=== PATIENT | female | born 2000 ===

== ENCOUNTER 2023-07-11 15:25 | Emergency (ER) | payer OTHER ==
[2023-07-11 15:41] VITALS: RESP 18
[2023-07-11] MEDS ORDERED: SODIUM CHLORIDE 0.9% 1,000 ML IV STA (15:52)
--- NOTE | 2023-07-11 16:10 | ED ---
ENT HPI - General Chief complaint: ENT Stated complaint: Dyspnea Time Seen by Provider: 07/11/23 15:29 Source: patient, family, EMS, RN notes reviewed Mode of arrival: EMS Limitations: language barrier - History of Present Illness Initial comments: This is a 22-year-old female who presents to the emergency department for throat tightness. States that she had a sudden episode of throat tightness lasting approximately 20 minutes, prompting her to call EMS. Symptoms have largely resolved at this point. Her friend is unsure if this may been related to anxiety. Patient is unsure if she is experiencing anxiety, but states that it is possible. Patient speaks very little [place] and requests that her friend and her translate for her and declines an official translater. Denies any chest pain or shortness of breath. - Related Data Allergies Allergy/AdvReac Type Severity Reaction Status Date / Time No Known Allergies Allergy Verified 07/11/23 15:32 Review of Systems ROS Statement: Those systems with pertinent positive or pertinent negative responses have been documented in the HPI. ROS Other: All systems not noted in ROS Statement are negative. General Exam Limitations: language barrier General appearance: alert, in no apparent distress Head exam: Present: atraumatic, normocephalic, normal inspection Neck exam: Present: normal inspection. Absent: tenderness, meningismus, lymphadenopathy Respiratory exam: Present: normal lung sounds bilaterally. Absent: respiratory distress, wheezes, rales, rhonchi, stridor Cardiovascular Exam: Present: regular rate, normal rhythm, normal heart sounds. Absent: systolic murmur, diastolic murmur, rubs, gallop, clicks Neurological exam: Present: alert, oriented X3, CN II-XII intact Psychiatric exam: Present: normal affect, normal mood Skin exam: Present: warm, dry, intact, normal color. Absent: rash Course Vital Signs 07/11/23 07/11/23 15:29 18:30 Temperature 97.7 F 97.8 F Pulse Rate 75 84 Respiratory 18 18 Rate Blood Pressure 117/67 128/81 O2 Sat by Pulse 99 99 Oximetry Medical Decision Making - Medical Decision Making This is a 22-year-old female who presents to the emergency department for throat tightness. Was pt. sent in by a medical professional or institution? @ -No Did you speak to anyone other than the patient for history? @ -Her friend and provided translation. Did you review nursing and triage notes? @ -Yes, and I agree, it is accurate with regards to the patient's symptoms. Were old charts reviewed? @ -No Differential Diagnosis? @ -Differential Throat Tightness: Allergic reaction, GERD, Viral URI, strep throat, this is not meant to be an all-inclusive list. EKG interpreted by me (3pts min.)? @ -Not obtained X-rays interpreted by me (1pt min.)? @ -X-ray of the chest and soft tissue neck obtained. My interpretation identifies an opacity in the left paratracheal region without any other acute process. CT interpreted by me (1pt min.)? @ -Computed tomography scan of the chest obtained. My interpretation identifies no localized consolidations or infiltrates. U/S interpreted by me (1pt. min.)? @ -Not obtained What testing was considered but not performed? (CT, X-rays, U/S, labs)? Why? @ -None What meds were considered but not given? Why? @ -None Did you discuss the management of the patient with other professionals? @ -No Did you reconcile home meds? @ -No Was smoking cessation discussed for >3mins.? @ -No Was critical care preformed (if so, how long)? @ -No Were there social determinants of health that impacted care today? How? (Homelessness, low income, unemployed, alcoholism, drug addiction, transportation, low edu. Level, literacy, decrease access to med. care, correction, rehab)? @ -No Was there de-escalation of care discussed even if they declined? (Discuss DNR or withdrawal of care, Hospice)? @ -No What co-morbidities impacted this encounter? (DM, HTN, Smoking, COPD, CAD, Cancer, CVA, Hep., AIDS, mental health diagnosis, sleep apnea, morbid obesity)? @ -None Was patient admitted / discharged? @ -Discharged. When the patient had arrived to the hospital, her symptoms had essentially resolved. She did however request to proceed with further workup. Lab work was obtained and found to be unremarkable. X-ray of the chest and soft tissue neck obtained demonstrating a masslike opacity in the left paratracheal region suggestive of a mediastinal mass or substernal thyroid. A computed tomography scan of the chest was advised for further evaluation. Computed tomography scan of the chest was subsequently obtained demonstrating no acute process. Findings reviewed with the patient and her family. She was given IV fluids as well in the emergency department. At the time of discharge, her symptoms had resolved. Advised that her symptoms may have been related to anxiety, however it is not entirely clear. Advised she follow-up with her primary care provider for reevaluation. Undiagnosed new problem with uncertain prognosis? @ -None Drug Therapy requiring intensive monitoring for toxicity (Heparin, Nitro, Insulin, Cardizem)? @ -None Were any procedures done? @ -None Diagnosis/symptom? @ -Throat tightness Acute, or Chronic, or Acute on Chronic? @ -Acute Uncomplicated (without systemic symptoms) or Complicated (systemic symptoms)? @ -Uncomplicated Side effects of treatment? @ -None Exacerbation, Progression, or Severe Exacerbation] @ -Not applicable Poses a threat to life or bodily function? @ -Unlikely Return precautions reviewed in depth, the patient is instructed to return to the emergency department with any new, worsening, or concerning symptoms. Patient verbalized understanding. This case was discussed in detail with the attending ED physician, Dr. Sauceda. Presentation, findings, and treatment plan discussed in detail as well. - Lab Data Result diagrams: 07/11/23 16:06 07/11/23 16:06 Lab Results 07/11/23 07/11/23 07/11/23 Range/Units 16:06 16:06 16:42 WBC 4.1 (3.8-10.6) k/uL RBC 4.91 (3.80-5.40) m/uL Hgb 13.1 (11.4-16.0) gm/dL Hct 39.1 (34.0-46.0) % MCV 79.6 L (80.0-100.0) fL MCH 26.6 (25.0-35.0) pg MCHC 33.4 (31.0-37.0) g/dL RDW 14.1 (11.5-15.5) % Plt Count 147 L (150-450) k/uL MPV 10.5 Neutrophils % 58 % Lymphocytes % 32 % Monocytes % 6 % Eosinophils % 1 % Basophils % 1 % Neutrophils # 2.4 (1.3-7.7) k/uL Lymphocytes # 1.3 (1.0-4.8) k/uL Monocytes # 0.2 (0-1.0) k/uL Eosinophils # 0.0 (0-0.7) k/uL Basophils # 0.0 (0-0.2) k/uL Sodium 140 (137-145) mmol/L Potassium 3.6 (3.5-5.1) mmol/L Chloride 107 (98-107) mmol/L Carbon Dioxide 23 (22-30) mmol/L Anion Gap 10 mmol/L BUN 13 (7-17) mg/dL Creatinine 0.51 L (0.52-1.04) mg/dL Est GFR (CKD-EPI)AfAm >90 (>60 ml/min/1.73 sqM) Est GFR (CKD-EPI)NonAf >90 (>60 ml/min/1.73 sqM) Glucose 89 (74-99) mg/dL Calcium 9.3 (8.4-10.2) mg/dL Total Bilirubin 0.6 (0.2-1.3) mg/dL AST 27 (14-36) U/L ALT 14 (4-34) U/L Alkaline Phosphatase 55 (38-126) U/L Total Protein 7.2 (6.3-8.2) g/dL Albumin 4.2 (3.5-5.0) g/dL TSH 0.540 (0.465-4.680) mIU/L HCG, Qual 07/11/23 Range/Units 16:42 WBC (3.8-10.6) k/uL RBC (3.80-5.40) m/uL Hgb (11.4-16.0) gm/dL Hct (34.0-46.0) % MCV (80.0-100.0) fL MCH (25.0-35.0) pg MCHC (31.0-37.0) g/dL RDW (11.5-15.5) % Plt Count (150-450) k/uL MPV Neutrophils % % Lymphocytes % % Monocytes % % Eosinophils % % Basophils % % Neutrophils # (1.3-7.7) k/uL Lymphocytes # (1.0-4.8) k/uL Monocytes # (0-1.0) k/uL Eosinophils # (0-0.7) k/uL Basophils # (0-0.2) k/uL Sodium (137-145) mmol/L Potassium (3.5-5.1) mmol/L Chloride (98-107) mmol/L Carbon Dioxide (22-30) mmol/L Anion Gap mmol/L BUN (7-17) mg/dL Creatinine (0.52-1.04) mg/dL Est GFR (CKD-EPI)AfAm (>60 ml/min/1.73 sqM) Est GFR (CKD-EPI)NonAf (>60 ml/min/1.73 sqM) Glucose (74-99) mg/dL Calcium (8.4-10.2) mg/dL Total Bilirubin (0.2-1.3) mg/dL AST (14-36) U/L ALT (4-34) U/L Alkaline Phosphatase (38-126) U/L Total Protein (6.3-8.2) g/dL Albumin (3.5-5.0) g/dL TSH (0.465-4.680) mIU/L HCG, Qual Not Detected - Radiology Data Radiology results: report reviewed, image reviewed Disposition Clinical Impression: Throat tightness Disposition: HOME SELF-CARE Additional Instructions: Return to the emergency department with any new, worsening, or concerning symptoms. Follow up with your primary care provider in 1-2 days. Is patient prescribed a controlled substance at d/c from ED?: No Referrals: None,Stated [Primary Care Provider] - 1-2 days Forms: Area PCPs
--- NOTE | 2023-07-11 16:16 | XR ---
EXAMINATION TYPE: XR chest 2V DATE OF EXAM: 07/11/2023 COMPARISON: None HISTORY: Chest pain and throat tightness TECHNIQUE: Frontal and lateral views of the chest are obtained. FINDINGS: There is a focal masslike opacity in the left paratracheal region which could represent a mediastinal mass possibly substernal thyroid. CT of the chest is recommended for further evaluation. There is no pneumothorax or pleural effusion. Heart and pulmonary vasculature are normal. The osseous structures are intact. IMPRESSION: Masslike opacity in the left paratracheal region as described above. CT of the chest useful for [facility] er evaluation.
--- NOTE | 2023-07-11 16:18 | XR ---
Soft tissues of the neck. HISTORY: Throat tightness. COMPARISON: None TECHNIQUE: Frontal and lateral views of the soft tissues neck were obtained. FINDINGS: Craniovertebral junction relationships and prevertebral soft tissues are normal. The cervical vertebral segments are normal in height and alignment. The airway is widely patent and there is no subglottic narrowing. There is no radiopaque foreign body . There is no retropharyngeal fullness or enlargement of the tonsils. IMPRESSION: No significant abnormality seen.
[2023-07-11] MEDS ORDERED: RX INFO: IV CONTRAST WAS GIVEN 1 EACH MISC MISCELLANE PRN (16:27)
[2023-07-11 16:33] LABS: Basophils % (A) 1 %; Eosinophils % (A) 1 %; HCT 39.1 % (34.0-46.0); HGB 13.1 gm/dL (11.4-16.0); Lymphocytes # (A) 1.3 k/uL (1.0-4.8); Lymphocytes % (A) 32 %; MCH 26.6 pg (25.0-35.0); MCHC 33.4 g/dL (31.0-37.0); MCV 79.6 fL (80.0-100.0); Mean Platelet Volume 10.5; Monocytes # (A) 0.2 k/uL (0-1.0); Monocytes % (A) 6 %; Neutrophils # (A) 2.4 k/uL (1.3-7.7); Neutrophils % (A) 58 %; Platelet Count 147 k/uL (150-450); RBC 4.91 m/uL (3.80-5.40); RDW 14.1 % (11.5-15.5); WBC 4.1 k/uL (3.8-10.6)
[2023-07-11 16:56] LABS: ALT 14 U/L (4-34); AST 27 U/L (14-36); African American GFR (CKD) >90 (>60 ml/min/1.73 sqM); Albumin 4.2 g/dL (3.5-5.0); Alkaline Phosphatase 55 U/L (38-126); Anion Gap 10 mmol/L; Blood Urea Nitrogen 13 mg/dL (7-17); Calcium 9.3 mg/dL (8.4-10.2); Carbon Dioxide 23 mmol/L (22-30); Chloride 107 mmol/L (98-107); Glucose 89 mg/dL (74-99); Non-African American GFR(CKD) >90 (>60 ml/min/1.73 sqM); Potassium 3.6 mmol/L (3.5-5.1); Sodium 140 mmol/L (137-145); Total Bilirubin 0.6 mg/dL (0.2-1.3); Total Protein 7.2 g/dL (6.3-8.2)
--- NOTE | 2023-07-11 17:01 | CT ---
EXAMINATION TYPE: CT chest w con DATE OF EXAM: 07/11/2023 COMPARISON: None HISTORY: abnormal chest xray in PACS. CT DLP: 219.7 mGycm Automated exposure control for dose reduction was used. TECHNIQUE: CT scan of the chest is performed with IV Contrast, patient injected with 100 mL of Isovue 300. MIP Images are created on CT scanner and reviewed. 3D reconstructed images are created on an independent workstation and reviewed. FINDINGS: LUNGS: The lungs are are clear of consolidative/airspace density or abnormal interstitial density. There is no pleural effusion, pleural thickening or pneumothorax. There is no pleural effusion or pneumothorax seen. There is no mediastinal, hilar or axillary adenopathy. There is no left paratracheal mass and there i s no substernal thyroid. Limited scanning the upper abdomen. The osseous structures are intact. IMPRESSION: No significant abnormality seen. There is no abnormality corresponding to the appearance fullness in the left paratracheal region on the chest radiograph of the same date. IMPRESSION: Follow-up recommendations for incidental pulmonary nodules are per [employer] or [employer].
[2023-07-11 18:41] VITALS: BP 128/81; PULSE 84; TEMP 97.8
== END 2023-07-11 18:31 | disposition home or self-care (01) ==
LOC: EC 15:25
DX: R07.0 Pain in throat (principal)
CPT/HCPCS: 36415; 80053; 84443; 85025; 84703; 70360; 71046; 71260; 99285; 96360; 96361; Q9967

== ENCOUNTER 2024-02-09 17:49 | Emergency (ER) | payer OTHER ==
[2024-02-09 20:50] LABS: Appearance,Urine Cloudy (Clear); Bacteria,Urine Many /hpf; Bilirubin,Urine Negative (Negative); Blood,Urine Negative (Negative); Color,Urine Yellow; Glucose,Urine (UA) Negative (Negative); Ketones,Urine Trace (Negative); Leukocyte Esterase,Urine Negative (Negative); Mucus,Urine Many /hpf; Nitrite,Urine Negative (Negative); PH, Urine 5.5 (5.0-8.0); Protein,Urine Negative (Negative); RBC,Urine <1 /hpf (0-5); Specific Gravity,Urine 1.027 (1.001-1.035); Squamous Epithelial Cell,Urine 6 /hpf (0-4); Urobilinogen,Urine <2.0 mg/dL (<2.0); WBC,Urine 1 /hpf (0-5)
--- NOTE | 2024-02-09 21:31 | US ---
EXAMINATION TYPE: Transabdominal DATE OF EXAM: 02/09/2024 9:05 PM COMPARISON: NONE CLINICAL INDICATION: Female, 23 years old with history of abd pain, of unk loc; Patients fri end states there is a little pain but not much. No bleeding. Patient hear for upper respiratory sympt oms. EXAM PERFORMED: Transabdominal (TA) EXAM MEASUREMENTS: GESTATIONAL AGE / DATING Physician Established: Not yet established Dates by LMP: (6 weeks/6 days) EDC: 09/28/2024 Dates by First Scan: No previous this is first scan Dates by Current Scan for: (7 weeks/1 days) EDC: 09/26/2024 MATERNAL ANATOMY Uterus: 8.4 x 5.8 x 6.8 Right Ovary: Obscured by overlying bowel Left Ovary: Obscured by overlying bowel Post CDS / Adnexa: WNL Presence of free fluid: No Presence of corpus luteal cyst: Not seen Presence of subchorionic bleed: There is a small 1.2 x 0.8 x 0.8cm hypoechoic area seen GESTATION / SURVEY CRL: 1.0 (7 weeks/1 days) Yolk Sac (normal less than 6mm): 4mm Heart Rate: 161 bpm Rhythm: Normal IUP: Viable IUP Date of LMP: 12/23/2023 Beta HcG (if available): Not available at this time IMPRESSION: 1. Single live intrauterine gestation with ultrasound age 7 weeks 1 day. 2. Tiny subchorionic hemorrhage .
--- NOTE | 2024-02-09 21:35 | ED ---
General Adult HPI - General Chief complaint: Upper Respiratory Infection Stated complaint: poss flu/back pain/8wks preg Time Seen by Provider: 02/09/24 17:55 Source: patient Mode of arrival: ambulatory Limitations: no limitations - History of Present Illness Initial comments: 23-year-old female who presents emergency department with "flulike symptoms". There is an educational interpreter at bedside. States that the patient has had cough, congestion, ear pain, sore throat for the past 2 days. Denies any fevers. No sick contacts with similar symptoms. Patient is currently 8 weeks . She has yet to establish care. She does do some abdominal cramping. This is the patient's first . She denies any vaginal bleeding or discharge. Denies chest pain or shortness of breath no changes in her bowel habits. Denies dysuria, hematuria or difficulty voiding. She does admit to some midline back pain. No reported trauma. No other alleviating, precipitating modifying factors - Related Data Previous Rx's Medication Instructions Recorded Cephalexin [Keflex] 500 mg PO QID 1 Days #40 cap 02/09/24 Allergies Allergy/AdvReac Type Severity Reaction Status Date / Time No Known Allergies Allergy Verified 02/09/24 17:56 Review of Systems ROS Statement: Those systems with pertinent positive or pertinent negative responses have been documented in the HPI. ROS Other: All systems not noted in ROS Statement are negative. Past Medical History Past Medical History: No Reported History History of Any Multi-Drug Resistant Organisms: None Reported Past Surgical History: No Surgical Hx Reported Past Psychological History: No Psychological Hx Reported Smoking Status: Never smoker Past Alcohol Use History: None Reported Past Drug Use History: None Reported General Exam Limitations: no limitations General appearance: alert, in no apparent distress Head exam: Present: atraumatic, normocephalic, normal inspection Eye exam: Present: normal appearance, PERRL, EOMI. Absent: scleral icterus, conjunctival injection, periorbital swelling ENT exam: Present: normal exam, mucous membranes moist, other (nasal congestion) Neck exam: Present: normal inspection. Absent: tenderness, meningismus, lymphadenopathy Respiratory exam: Present: normal lung sounds bilaterally. Absent: respiratory distress, wheezes, rales, rhonchi, stridor Cardiovascular Exam: Present: regular rate, normal rhythm, normal heart sounds. Absent: systolic murmur, diastolic murmur, rubs, gallop, clicks GI/Abdominal exam: Present: soft, normal bowel sounds. Absent: distended, tenderness, guarding, rebound, rigid Extremities exam: Present: normal inspection, full ROM, normal capillary refill. Absent: tenderness, pedal edema, joint swelling, calf tenderness Back exam: Present: normal inspection Neurological exam: Present: alert, oriented X3, CN II-XII intact Psychiatric exam: Present: normal affect, normal mood Skin exam: Present: warm, dry, intact, normal color. Absent: rash Course Vital Signs 02/09/24 02/09/24 17:53 22:22 Temperature 98.8 F 97.9 F Pulse Rate 93 72 Respiratory 20 18 Rate Blood Pressure 117/76 119/75 O2 Sat by Pulse 99 98 Oximetry Medical Decision Making - Medical Decision Making Was pt. sent in by a medical professional or institution (, PA, BUNDLE COLLECTOR, urgent care, hospital, or fdc...) When possible be specific @ -No Did you speak to anyone other than the patient for history (EMS, parent, family, police, friend...)? What history was obtained from this source @ -I spoke with the patient's friend who does all the translating Did you review nursing and triage notes (agree or disagree)? Why? @ -I reviewed and agree with nursing and triage notes Were old charts reviewed (outside hosp., previous admission, EMS record, old EKG, old radiological studies, urgent care reports/EKG's, fdc records)? Report findings @ -No old charts were reviewed Differential Diagnosis (chest pain, altered mental status, abdominal pain women, abdominal pain men, vaginal bleeding, weakness, fever, dyspnea, syncope, headache, dizziness, GI bleed, back pain, seizure, CVA, palpatations, mental health, musculoskeletal)? @ -Upper respiratory infection, influenza, strep, COVID EKG interpreted by me (3pts min.). @ -Not done X-rays interpreted by me (1pt min.). @ -None done CT interpreted by me (1pt min.). @ -None done U/S interpreted by me (1pt. min.). @ -None done What testing was considered but not performed or refused? (CT, X-rays, U/S, labs)? Why? @ -X-ray however patient is and does not want to undergo the risks of radiation What meds were considered but not given or refused? Why? @ -None Did you discuss the management of the patient with other professionals (rosalba rey i.e. , PA, BUNDLE COLLECTOR, lab, RT, psych nurse, licensed master social worker, divorce lawyer, teacher, benefits officer, case checker)? Give summary @ -No Was smoking cessation discussed for >3mins.? @ -No Was critical care preformed (if so, how long)? @ -No Were there social determinants of health that impacted care today? How? (Homelessness, low income, unemployed, alcoholism, drug addiction, transportation, low edu. Level, literacy, decrease access to med. care, skilled nursing, rehab)? @ -No Was there de-escalation of care discussed even if they declined (Discuss DNR or withdrawal of care, Hospice)? DNR status @ -No What co-morbidities impacted this encounter? (DM, HTN, Smoking, COPD, CAD, Cancer, CVA, ARF, Chemo, Hep., AIDS, mental health diagnosis, sleep apnea, morbid obesity)? @ -None Was patient admitted / discharged? Hospital course, mention meds given and route, prescriptions, significant lab abnormalities, going to OR and other pertinent info. @ -Upon arrival patient seen and evaluated in room 29. Thorough history and physical exam was performed. Ultrasound was performed which demonstrates intrauterine with heart tones. Patient is swabbed for influenza, RSV and COVID all of which are negative. She will be started on antibiotics for UTI. at this time patient will be discharged home and instructed to rest, increase fluid intake. Return for any new or worsening symptoms. Patient agreeable plan was discharged in stable condition Undiagnosed new problem with uncertain prognosis? @ -No Drug Therapy requiring intensive monitoring for toxicity (Heparin, Nitro, Insulin, Cardizem)? @ -No Were any procedures done? @ -No Diagnosis/symptom? @ -Acute upper respiratory infection, acute UTI first trimester Acute, or Chronic, or Acute on Chronic? @ -Acute Uncomplicated (without systemic symptoms) or Complicated (systemic symptoms)? @ -Complicated Side effects of treatment? @ -No Exacerbation, Progression, or Severe Exacerbation? @ -No Poses a threat to life or bodily function? How? (Chest pain, [place], [place], pneumonia, PE, COPD, DKA, ARF, appy, cholecystitis, CVA, Diverticulitis, Homicidal, Suicidal, threat to staff... and all critical care pts) @ -No - Lab Data Lab Results 02/09/24 02/09/24 02/09/24 Range/Units 19:48 19:48 19:57 Urine Color Yellow Urine Appearance Cloudy H (Clear) Urine pH 5.5 (5.0-8.0) Ur Specific [place] 1.027 (1.001-1.035) Urine Protein Negative (Negative) Urine Glucose (UA) Negative (Negative) Urine Ketones Trace H (Negative) Urine Blood Negative (Negative) Urine Nitrite Negative (Negative) Urine Bilirubin Negative (Negative) Urine Urobilinogen <2.0 (<2.0) mg/dL Ur Leukocyte Esterase Negative (Negative) Urine RBC <1 (0-5) /hpf Urine WBC 1 (0-5) /hpf Ur Squamous Epith Cells 6 H (0-4) /hpf Urine Bacteria Many H (None) /hpf Urine Mucus Many H (None) /hpf Influenza Type A (PCR) Not Detected (Not Detectd) Influenza Type B (PCR) Not Detected (Not Detectd) RSV (PCR) Not Detected (Not Detectd) SARS-CoV-2 (PCR) Not Detected (Not Detectd) Group A Strep (PCR) NOT DETECTED (Not Detectd) Disposition Clinical Impression: Pharyngitis, Cough, UTI (urinary tract infection), First trimester Disposition: HOME SELF-CARE Condition: Stable Instructions (If sedation given, give patient instructions): Urinary Tract Infection in Women (ED), Upper Respiratory Infection (ED) Additional Instructions: Please start the antibiotics tomorrow. Follow-up with the PATIENT TRANSPORT OFFICER. Continue taking your vitamin. Return for any new or worsening symptoms. Prescriptions: Cephalexin [Keflex] 500 mg PO QID 1 Days #40 cap Is patient prescribed a controlled substance at d/c from ED?: No Referrals: Nonstaff,Physician [Primary Care Provider] - 1-2 days Flores Ashley DO [Doctor of Osteopathic Medicine] - 1-2 days Time of Disposition: 21:57
[2024-02-09] MEDS: cefTRIAXone 1,000 MG VIAL (IM USE) IM STA (22:15)
[2024-02-09 22:24] VITALS: BP 119/75; PULSE 72; RESP 18; TEMP 97.9
== END 2024-02-09 22:22 | disposition home or self-care (01) ==
LOC: EC 17:49
DX: O99.511 Diseases of the respiratory system complicating pregnancy, first trimester (principal); J02.9 Acute pharyngitis, unspecified; O99.891 Other specified diseases and conditions complicating pregnancy; N39.0 Urinary tract infection, site not specified; Z3A.08 8 weeks gestation of pregnancy
CPT/HCPCS: 87651; 81001; 87636; 76801; 99284; 96372; J0696

== ENCOUNTER 2024-09-22 00:07 | Inpatient (IN) | payer OTHER ==
[2024-09-22] MEDS ORDERED: TERBUTALINE 1 MG/ML VIAL SQ PRN (02:14)
[2024-09-22] MEDS ORDERED: METHYLERGONOVINE 0.2 MG/ML 1 ML AMP IM PRN (02:14)
[2024-09-22] MEDS ORDERED: TRANEXAMIC 1,000 MG/100ML-NACL 1,000 MG in EMPTY BAG 1 BAG IV PRN (02:14)
[2024-09-22] MEDS ORDERED: OXYTOCIN 10 UNIT/ML 1 ML VIAL IM PRN (02:14)
[2024-09-22] MEDS ORDERED: miSOPROStoL 200 MCG TAB PO PRN (02:14)
[2024-09-22] MEDS ORDERED: miSOPROStoL 200 MCG TAB RECTAL PRN (02:14)
[2024-09-22] MEDS ORDERED: CARBOPROST TROMETHAMINE 250 MCG/ML 1 ML AMP IM PRN (02:14)
[2024-09-22 02:29] VITALS: RESP 16
[2024-09-22] MEDS: LACTATED RINGERS 1,000 ML IV SCH (02:30)
[2024-09-22] MEDS: NALBUPHINE 10 MG/ML (10 ML MDV) IV PRN (02:40)
[2024-09-22 03:11] LABS: Basophils % (A) 0 %; Eosinophils % (A) 0 %; HCT 40.7 % (34.0-46.0); HGB 13.1 gm/dL (11.4-16.0); Lymphocytes # (A) 1.8 k/uL (1.0-4.8); Lymphocytes % (A) 20 %; MCH 26.5 pg (25.0-35.0); MCHC 32.1 g/dL (31.0-37.0); MCV 82.5 fL (80.0-100.0); Mean Platelet Volume 13.7; Monocytes # (A) 0.4 k/uL (0-1.0); Monocytes % (A) 5 %; Neutrophils # (A) 6.5 k/uL (1.3-7.7); Neutrophils % (A) 73 %; Platelet Count 138 k/uL (150-450); RBC 4.93 m/uL (3.80-5.40); RDW 15.6 % (11.5-15.5); WBC 8.8 k/uL (3.8-10.6)
[2024-09-22 04:18] LABS: Large Platelets Present
[2024-09-22] MEDS: LIDOCAINE 0.5% (PF) 5 MG/ML (50 ML SDV) SQ PRN (08:12)
[2024-09-22] MEDS ORDERED: diphenhydrAMINE 50 MG CAP PO PRN (08:20)
[2024-09-22] MEDS ORDERED: SIMETHICONE 80 MG CHEWABLE PO PRN (08:20)
[2024-09-22] MEDS ORDERED: ZOLPIDEM 5 MG TAB PO PRN (08:20)
[2024-09-22] MEDS ORDERED: diphenhydrAMINE 50 MG/ML 1 ML VIAL IVP PRN ×2 (08:20)
[2024-09-22] MEDS ORDERED: LANOLIN CREAM 1 GM TUBE TOPICAL PRN (08:20)
[2024-09-22] MEDS ORDERED: HYDROCORTISONE 2.5% RECTAL CREAM 30 GM TUBE RECTAL PRN (08:20)
[2024-09-22] MEDS ORDERED: diphenhydrAMINE 25 MG CAP PO PRN (08:20)
--- NOTE | 2024-09-22 08:23 | P.HPOB ---
History of Present Illness H&P Date: 09/22/24 Chief Complaint: labor 23 year old presents at 39 weeks 1 day in labor. Her cervix changed from 2/80/-2 to 3.5/80/-2. She was marysol every few minutes and heart tones category 1. Review of Systems All systems: negative Constitutional: Denies chills, Denies fever Eyes: denies blurred vision, denies pain Ears, nose, mouth and throat: Denies headache, Denies sore throat Cardiovascular: Denies chest pain, Denies shortness of breath Respiratory: Denies cough Gastrointestinal: Denies abdominal pain, Denies diarrhea, Denies nausea, Denies vomiting Genitourinary: Denies dysuria, Denies hematuria Musculoskeletal: Denies myalgias Integumentary: Denies pruritus, Denies rash Neurological: Denies numbness, Denies weakness Psychiatric: Denies anxiety, Denies depression Endocrine: Denies fatigue, Denies weight change Past Medical History Past Medical History: No Reported History History of Any Multi-Drug Resistant Organisms: None Reported Past Surgical History: No Surgical Hx Reported Past Psychological History: No Psychological Hx Reported Smoking Status: Never smoker Past Alcohol Use History: None Reported Past Drug Use History: None Reported Medications and Allergies Home Medications Medication Instructions Recorded Confirmed Type Yuh-Vhxg-Lzurh Acid 09/22/24 History [-U Capsule (formulary)] Allergies Allergy/AdvReac Type Severity Reaction Status Date / Time No Known Allergies Allergy Verified 09/22/24 00:10 Exam Osteopathic Statement: *. No significant issues noted on an osteopathic structural exam other than those noted in the History and Physical/Consult. Vital Signs Temp Pulse Resp BP Pulse Ox 09/22/24 01:47 97.3 F L 62 16 143/76 09/22/24 00:08 96.6 F L 64 16 130/83 99 Intake and Output 09/21/24 09/22/24 09/22/24 22:59 06:59 14:59 Other: Weight 68.039 kg Heart: Regular rate and rhythm Lungs: Clear to auscultation bilaterally Abdomen: Soft, nontender Extremities: Negative Homans sign Results Result Diagrams: 09/22/24 02:17 Abnormal Lab Results - Last 24 Hours (Table) 09/22/24 Range/Units 02:17 RDW 15.6 H (11.5-15.5) % Plt Count 138 L (150-450) k/uL Assessment and Plan (1) Normal labor Current Visit: Yes Status: Acute Code(s): O80 - ENCOUNTER FOR FULL-TERM UNCOMPLICATED DELIVERY; Z37.9 - OUTCOME OF DELIVERY, UNSPECIFIED SNOMED Code(s): 30438768 (2) 39 weeks gestation of Current Visit: Yes Status: Acute Code(s): Z3A.39 - 39 WEEKS GESTATION OF SNOMED Code(s): 02800599 Plan: 1. admit to [facility] 2. expectant management 3. anticipate normal vaginal delivery
--- NOTE | 2024-09-22 08:25 | P.PROBDLV ---
Vaginal Delivery Note - . Vaginal Delivery Note: Date of Service: 09/22/2024 23 year old presents at 39 weeks 1 day in labor. Her cervix changed from 2/80/-2 to 3.5/80/-2. She was marysol every few minutes and heart tones category 1. Patient was admitted around 1 in the morning. She used Nubain for pain management. At 640 in the morning her cervix was 6 cm dilated and she had ruptured her bag of water sometime through the night. Her cervix was completely dilated and she was involuntary pushing at 7:27 AM. She then pushed and delivered a viable male over midline episiotomy at 8:02 AM. Head delivered OA, anterior shoulder delivered gentle downward guidance followed by posterior shoulder and rest of body. Nose and mouth bulb suction, cord clamped and cut, infant placed on mother's abdomen. Apgars 9, 9, weight 7 pounds 6 ounces. Placenta delivered spontaneously, intact with three-vessel cord at 8:06 AM. Vagina, cervix, perineum inspected. Second-degree midline episiotomy was repaired with 3-0 Vicryl and 2-0 Vicryl. Estimated blood loss 100 mL. Mother and baby in stable condition.
[2024-09-22] MEDS: OXYTOCIN 30 UNITS/500 ML NS 30 UNIT in SALINE 1 500ML.BAG IV SCH (08:32)
[2024-09-22] MEDS: BENZOCAINE/MENTHOL SPRAY 1 GM/SPRAY AEROSOL TOPICAL PRN (08:33)
[2024-09-22] MEDS: IBUPROFEN 800 MG TAB PO SCH (16:47)
[2024-09-22] MEDS: ACETAMINOPHEN TAB 500 MG TAB PO SCH (16:47)
[2024-09-22] MEDS: SENNOSIDES-DOCUSATE SODIUM 1 EACH TAB PO SCH (21:13)
[2024-09-22 21:33] VITALS: PULSE 87
[2024-09-23 04:15] LABS: Basophils % (A) 0 %; Eosinophils % (A) 0 %; HCT 38.2 % (34.0-46.0); HGB 12.1 gm/dL (11.4-16.0); Lymphocytes # (A) 1.9 k/uL (1.0-4.8); Lymphocytes % (A) 15 %; MCH 26.7 pg (25.0-35.0); MCHC 31.7 g/dL (31.0-37.0); MCV 84.1 fL (80.0-100.0); Mean Platelet Volume 12.1; Monocytes # (A) 0.6 k/uL (0-1.0); Monocytes % (A) 5 %; Neutrophils # (A) 10.3 k/uL (1.3-7.7); Neutrophils % (A) 79 %; Platelet Count 124 k/uL (150-450); RBC 4.54 m/uL (3.80-5.40); RDW 15.7 % (11.5-15.5)
[2024-09-23 09:21] VITALS: BP 127/76; TEMP 98.1
--- NOTE | 2024-09-23 10:05 | P.DS ---
Providers Date of admission: 09/22/24 01:34 Expected date of discharge: 09/23/24 Attending physician: Flores Ashley Primary care physician: Stated None - Discharge Diagnosis(es) (1) Normal labor Current Visit: Yes Status: Resolved (2) 39 weeks gestation of Current Visit: Yes Status: Resolved (3) Status post normal vaginal delivery Current Visit: Yes Status: Acute Hospital Course: Presented in active labor. She underwent a normal vaginal delivery. course has been uneventful. She denies nausea, vomiting, chest pain, shortness of breath or calf pain. Patient will be discharged home post day #1 in stable condition to follow-up with me in 6 weeks. Plan - Discharge Summary New Discharge Prescriptions: New Ibuprofen [Motrin] 800 mg PO Q8HR #30 tab No Action Kpf-Iofw-Dhleh Acid [-U Capsule (formulary)] Discharge Medication List Prw-Osiu-Afobo Acid [-U Capsule (formulary)] 09/22/24 [History] Ibuprofen [Motrin] 800 mg PO Q8HR #30 tab 09/23/24 [Rx] Follow up Appointment(s)/Referral(s): Flores Ashley DO [Doctor of Osteopathic Medicine] - 11/03/24 11:15 am Discharge Disposition: HOME SELF-CARE
== END 2024-09-23 15:20 | disposition home or self-care (01) | DRG 560 ==
LOC: FBPOP 00:07 → 4FBP 01:34
PROVIDERS: ADMIT Obstetrics & Gynecology; ATTEND Obstetrics & Gynecology
PROC: 0W8NXZZ Division of Female Perineum, External Approach (ICD-10-PCS; principal; 2024-09-22)
PROC: 10E0XZZ Delivery of Products of Conception, External Approach (ICD-10-PCS; principal; 2024-09-22)
DX: O80 Encounter for full-term uncomplicated delivery (principal); Z3A.39 39 weeks gestation of pregnancy; Z37.0 Single live birth
CPT/HCPCS: 59025; 85025; 86850; 86900; 86901; 99213